=== PATIENT | female | born 1995 | race African-American/Black ===

== ENCOUNTER 2025-03-23 08:31 | Emergency (ER) | payer BC, SELFPAY ==
[2025-03-23 08:31] VITALS: PULSE 107; RESP 28; O2SAT 98
[2025-03-23] MEDS: IPRATROPIUM 0.5 MG/ALBUTEROL SULFATE 2.5 MG (BASE) AMPUL.NEB 3 ML INHALATION (08:31)
[2025-03-23 08:32] VITALS: BP 122/84; PULSE 107; RESP 28; TEMP 37; O2SAT 98
--- NOTE | 2025-03-23 08:37 | ED.URI ---
HPI - URI/Sore Throat General Chief Complaint: Upper Respiratory Infection Stated Complaint: Asthma Attack Time Seen by Provider: 03/23/25 08:57 Source: patient, RN notes reviewed and old records reviewed Mode of arrival: ambulatory Limitations: no limitations History of Present Illness HPI Narrative: 29-year-old female presents to the [facility] with concerns of an asthma attack. Started wheezing yesterday. Did use her inhaler couple times yesterday, couple times through the night. States whenever she starts coughing she does vomit. Has vomited once in clinic. Denies any chest pain, abdominal pain. Patient has a history of asthma. Related Data Home Medications ?Medication ?Instructions ?Recorded ?Confirmed ?Last Taken ?Type albuterol 90 mcg/actuation aerosol mcg inhalation 03/23/25 Unknown History inhaler Allergies Allergy/AdvReac Type Severity Reaction Status Date / Time No Known Allergies Allergy Verified 03/23/25 08:33 Review of Systems Review of Systems: All systems reviewed & are unremarkable except as noted in HPI and below Constitutional: Constitutional: Reports no additional constitutional complaints ENT: Reports system reviewed and no additional complaints, except as documented Cardiovascular: Cardiovascular: Reports no additional cardiovascular complaints, Denies chest pain and Denies dyspnea Respiratory: Respiratory: Reports as per HPI, Denies chest congestion, Reports cough, Denies dyspnea and Reports wheezing Musculoskeletal: Musculoskeletal: Reports no additional musculoskeletal complaints Integumentary/Breasts: Skin/Breast: Reports system reviewed and no additional complaints, except as docu [facility] Past Medical History Medical History (Updated 03/23/25 @ 18:12 by Tracy Rosario APRN) History of asthma Comments At the time of my signature, I reviewed and agree with the nursing past medical, surgical, social, and family history. There is no relevant family history pertinent to the patient complaint. Exam Const: General: cooperative, healthy appearing, comfortable, no acute distress, well developed, alert and well nourished Nutritional Appearance: well nourished and obese morbidly obese Orientation/consciousness: patient oriented x3 Limitations: no limitations HENMT: Head: normal to inspection Ears: hearing grossly normal bilaterally, external ears normal, TM's normal bilaterally, EAC's normal, mastoids normal and no periauricular adenopathy Mouth: Yes Normal oral and palatal mucosa present, Yes lip normal, Yes tongue normal and Yes moist mucous membranes Throat: posterior oropharynx normal, uvula midline and no uvular edema Eyes: General: appearance normal, both eyes and all related structures Alignment and Position: alignment normal Neck: Neck: normal visual inspection, full ROM, no lymphadenopathy and no meningeal signs Chest: Chest palpation & inspection: normal inspection of the chest Resp: Effort & Inspection: normal respiratory effort and able to speak in complete sentences Auscultation: no crackles, no rales, no rhonchi and wheezes Cardio: Rate: regular rate Skin: General skin exam: normal color and no rashes or lesions noted Neuro: General: patient oriented x3, gait normal, moves all extremities and no meningeal signs Cognition (Neuro): normal cognition Speech: normal speech Gait exam (Neuro): Normal gait present Extrem: General: normal to inspection, full ROM, capillary refill normal and normal gait Psych: Appearance: grossly normal and well kempt Mental Status: mental status grossly normal Speech and movement: Normal speech and movement present and Clear speech present Affect: normal affect Attitude: cooperative Course Course Level of Care: Express Care Visit Vital Signs Vital signs: Vital Signs Pulse Rate 107 H 03/23/25 08:31 Respiratory Rate 28 H 03/23/25 08:31 Pulse Oximetry 98 03/23/25 08:31 Oxygen Delivery Room Air 03/23/25 08:31 Temperature 98.6 F 03/23/25 08:32 Pulse Rate 103 H 03/23/25 09:20 Respiratory Rate 24 H 03/23/25 09:20 Blood Pressure 124/73 03/23/25 09:20 Pulse Oximetry 100 03/23/25 09:20 Oxygen Delivery Room Air 03/23/25 09:20 Reviewed MDM - URI/Sore Throat MDM Narrative Medical decision making narrative: Patient sitting in exam room. Patient is nontoxic, vitals are stable. Patient presents for wheezing. Breathing treatment done in clinic. Patient reports improved breathing. Lungs clear to auscultation post breathing treatment. Discussed signs and symptoms to proceed to the emergency room. Patient is appropriate for outpatient treatment with follow-up Patient states that her symptoms are similar to when she had COVID a couple years ago. Testing done, were negative Discharge instructions reviewed with patient, as well as provided in writing per nursing staff. The instructions also include specific and strict return/GO TO THE ER as well as f/u information. All questions have been answered, and the patient deny any further questions with discharge and discharge plan. Some parts of this dictation were generated by voice recognition software and may contain typographical and/or grammatical inaccuracies. Differential Diagnosis Differential diagnosis: Likely upper respiratory infection, sinusitis, viral infection, bronchitis and other (Asthma exacerbation) Lab Data Labs: Lab Results 03/23/25 Range/Units 09:00 POC Influenza A Ag Negative (Negative) POC Influenza B Ag Negative (Negative) POC SARS CoV-2 Ag Negative (Negative) Reviewed Critical Care Time Critical Care Time Critical Care Time: No Discharge Plan Discharge Clinical Impression: Asthma exacerbation Patient Disposition: Home Condition: Stable Instructions: Antibiotic Form, Asthma (ED) Additional Instructions: Use your inhaler every 4-5 hours as needed. If you continue to have nauseous use the Zofran Take steroids as prescribed Follow-up with primary care provider For new or worsening symptoms go directly to the emergency room Patient Language: Persian Prescriptions: New albuterol sulfate [Ventolin HFA] 90 mcg/actuation HFA aerosol inhaler 2 puff inhalation QID PRN (Reason: shortness of breath or wheezing) Qty: 6.7 0RF ondansetron 4 mg tablet,disintegrating 4 mg PO Q8H PRN (Reason: nausea and vomiting) Qty: 7 0RF prednisone 20 mg tablet 40 mg PO DAILY 5 Days Qty: 10 0RF No Action albuterol 90 mcg/actuation aerosol inhalation Follow-up/Referrals: UNKNOWN,DOCTOR [Non-Staff] Stand Alone Forms: Work/School Release IP Time of Disposition: 09:15
--- NOTE | 2025-03-23 08:41 | PC.NURSE ---
0824-pt pulled from waiting room, pt states that she is having an asthma attack, pt states that she used her inhaler this am, and twice since last evening. pt has wheezing to all lung rosa on inspiration and expiration, but is not in distress at present. pt is able to speak full sentences at present and then catches her breath after, pt states weather change always brings in this type of wheezing, and pt just moved here from [place].
[2025-03-23 08:45] VITALS: PULSE 108; RESP 24; O2SAT 98
[2025-03-23 09:20] VITALS: BP 124/73; PULSE 103; RESP 24; O2SAT 100
[2025-03-23 09:30] LABS: EDCOVIDSCREEN Negative (Negative); EDINFLUASCREEN Negative (Negative); EDINFLUBSCREEN Negative (Negative)
== END 2025-03-23 09:20 | disposition home or self-care (01) ==
PROVIDERS: Emergency Provider Nurse Practitioner
DX: J45.901 Unspecified asthma with (acute) exacerbation (principal); Z20.822 Contact with and (suspected) exposure to COVID-19
CPT/HCPCS: 87426; 87804; 94640; 99213; G0463